=== PATIENT | male | born 1980 | race Caucasian/White ===

== ENCOUNTER 2018-03-13 13:15 | Emergency (ER) | payer OTHER ==
[~2018-03-13] VITALS: Ht 180.3 cm; Wt 79.8 kg
[~2018-03-13 13:15] MED LIST: CYCLOBENZAPRINE5 M2 PO; IBUPROFEN800 M1 PO
[2018-03-13 14:05] LABS: ABSOLUTE BASOPHIL COUNT 0 /CUMM (0.0-0.2); ABSOLUTE EOSINOPHIL COUNT 0.1 /CUMM (0.0-0.7); ABSOLUTE GRANULOCYTE CT 2.8 /CUMM (1.4-6.5); ABSOLUTE LYMPH COUNT 1.6 /CUMM (1.2-3.4); ABSOLUTE MONOCYTE COUNT 0.2 /CUMM (0.10-0.60); BASOPHIL % 0.8 % (0.0-2.0); EOSINOPHIL % 2.3 % (0-5); GRANULOCYTE % 58.2 % (42.2-75.2); HEMATOCRIT 41.1 % (42-52); MEAN CORPUSCULAR HGB 32.4 PG (27.0-31.0); MEAN CORPUSCULAR HGB CONC 35.2 G/DL (33.0-37.0); MEAN CORPUSCULAR VOLUME 92.1 FL (80.0-94.0); MEAN PLATELET VOLUME 8.9 FL (7.4-10.4); PLATELET COUNT 233 /CUMM (130-400); RBC DISTRIBUTION WIDTH 13.6 % (11.5-14.5); RED BLOOD CELL CT 4.46 /CUMM (4.70-6.10); WHITE BLOOD CELL COUNT 4.8 /CUMM (4.8-10.8)
--- NOTE | 2018-03-13 14:32 | ED GENERAL ADULT ---
History of Present Illness General Chief Complaint: General Adult Stated Complaint: ? DEHYDRATIO Source: patient Exam Limitations: no limitations Vital Signs & Intake/Output Vital Signs & Intake/Output Vital Signs Date Time Temp Pulse Resp B/P B/P Pulse O2 O2 Flow FiO2 Mean Ox Delivery Rate 03/13 1530 97.9 76 18 124/74 98 Room Air Room Air 03/13 1321 97.6 83 18 131/67 97 Room Air 03/13 1320 97 Room Air Room Air ED Intake and Output 03/14 0000 03/13 1200 Intake Total 1000 Output Total Balance 1000 Intake, IV 1000 Patient 176 lb Weight Weight Reported by Patient Measurement Method Allergies Coded Allergies: acetaminophen (From TYLENOL COLD HEAD CONGESTION) ([facility] 02/16/16) dextromethorphan (From TYLENOL COLD HEAD CONGESTION) ([facility] 02/16/16) guaifenesin (From TYLENOL COLD HEAD CONGESTION) ([facility] 02/16/16) ibuprofen (From ADVIL COLD AND SINUS) ([facility] 02/16/16) phenylephrine (From TYLENOL COLD HEAD CONGESTION) ([facility] 02/16/16) pseudoephedrine (From ADVIL COLD AND SINUS) ([facility] 02/16/16) Reconcile Medications No Known Home Medications Triage Note: BIBA PER EMS PT PULLED OVER, FOR C/O LEG CRAMPING AND DEHYDRATION, ONLY HAD COFFEE AND A ENERGY BAR THIS MORNING, PER PT DID NOT EAT SUPPER LAST NIGHT AND HAD "SOME ALCOHOL LAST NIGHT". Triage Nurses Notes Reviewed? yes Onset: Abrupt Duration: day(s): (1), better, continues in ED Timing: single episode today Injury Environment: home Severity: mild, moderate No Modifying Factors: none HPI: 37-year-old male history of cold dependence brought in by ambulance for evaluation of dehydration. Patient reports last night he had been drinking not eating very much. He states daily had some coffee. 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 Patient denies any dizziness lightheadedness chest pain abdominal pain nausea vomiting or diarrhea. No changes in vision no slurred speech. He does not want alcohol detox. Denies any drug use orhomicidalideation. Patient is reluctant to answer questions. He reports he does HAVE a lot of stress in his life that he thinks may have contributed to this. Past History Travel History Traveled to [place] past 21 day No Medical History Any Pertinent Medical History? 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 No Review of Systems Review of Systems Constitutional: Reports: no symptoms. EENTM: Reports: no symptoms. Respiratory: Reports: no symptoms. Cardiovascular: Reports: no symptoms. GI: Reports: no symptoms. Genitourinary: Reports: no symptoms. Musculoskeletal: Reports: see HPI, back pain, muscle pain, muscle stiffness. Skin: Reports: no symptoms. Neurological/Psychological: Reports: no symptoms. Hematologic/Endocrine: Reports: no symptoms. Immunologic/Allergic: Reports: no symptoms. All Other Systems: Reviewed and Negative Physical Exam Physical Exam General Appearance: well developed/nourished, no apparent distress, alert, awake Head: atraumatic, normal appearance Eyes: Bilateral: normal appearance, PERRL, EOMI. Ears, Nose, Throat: normal pharynx, normal ENT inspection, hearing grossly normal Neck: normal inspection, supple, full range of motion Respiratory: normal breath sounds, chest non-tender, no respiratory distress, lungs clear Cardiovascular: regular rate/rhythm, normal peripheral pulses Peripheral Pulses: 2+ radial (R), 2+ radial (L) Gastrointestinal: soft, non-tender Back: normal inspection, normal range of motion Extremities: normal inspection, normal range of motion, no edema Neurologic/Psych: no motor/sensory deficits, awake, alert, oriented x 3, normal gait, normal mood/affect Skin: intact, normal color, warm/dry Lymphatic: no anterior cervical duane Core Measures ACS in differential dx? No CVA/TIA Diagnosis: No Sepsis Present: No Sepsis Focused Exam Completed? No Progress Differential Diagnoses I considered the following diagnoses in my evaluation of the patient: [ Dehydration, electrolyte abnormality, drug intoxication, drug withdrawal] Plan of Care: Orders Procedure Date/time Status Add-on Test (ER Only) 03/13 1436 Active ETHANOL 03/13 1325 Complete TROPONIN LEVEL 09/11 1320 Complete COMPREHENSIVE METABOLIC PANEL 03/13 1320 Complete CBC WITHOUT DIFFERENTIAL 03/13 1320 Complete Laboratory Tests 03/13/18 1325: Anion Gap 11, Estimated GFR > 60, BUN/Creatinine Ratio 17.0, Glucose 100 H, Calcium 9.7, Total Bilirubin 0.6, AST 28, ALT 39, Alkaline Phosphatase 55, Troponin I < 0.01, Total Protein 7.3, Albumin 4.7, Globulin 2.6, Albumin/ Globulin Ratio 1.8, CBC w Diff NO MAN DIFF REQ, RBC 4.46 L, MCV 92.1, MCH 32.4 H, MCHC 35.2, RDW 13.6, MPV 8.9, Gran % 58.2, Lymphocytes % 33.7, Monocytes % 5.0, Eosinophils % 2.3, Basophils % 0.8, Absolute Granulocytes 2.8, Absolute Lymphocytes 1.6, Absolute Monocytes 0.2, Absolute Eosinophils 0.1, Absolute Basophils 0, Serum Alcohol < 10.0 03/13/18 132: Urine Color Cancelled, Urine Clarity Cancelled, Urine pH Cancelled, Ur Specific [place] Cancelled, Urine Protein Cancelled, Urine Ketones Cancelled, Urine Nitrite Cancelled, Urine Bilirubin Cancelled, Urine Urobilinogen Cancelled, Ur Leukocyte Esterase Cancelled, Ur Microscopic Cancelled, Urine Hemoglobin Cancelled, Urine Glucose Cancelled Patient is here feeling dehydrated. He is requesting IV fluids. Patient is reluctant to answer questions causing history to be limited. His vital signs are stable physical exam is unremarkable. Labs were ordered patient was given a liter of normal saline. After fluids patient reports he is feeling much better and would like to leave. He declines wanting alcohol detox orhomicidalideation. Patientappears Sober and has a steady gait. He was instructed to continue drinking plenty of fluids and avoid alcohol follow-up with the primary care doctor discussed return precautions patient agrees Initial ED EKG: none Departure Departure Disposition: HOME OR SELF CARE Condition: Stable Clinical Impression Primary Impression: Dehydration Referrals: Patient Has No Primary Care Dr (PCP/Family) Additional Instructions: Continue to drink plenty of fluids espicially water. Avoid caffeine.follow-up with a primary care doctor monitor your symptoms return with any concerns. Departure Forms: Customer Survey General Discharge Information Prescriptions: Current Visit Scripts No Known Home Medications Critical Care Note Critical Care Note Critical Care Time: non-applicable
[2018-03-13 15:30] VITALS: BP 124/74
== END 2018-03-13 15:35 ==
LOC: ERH 13:15
PROVIDERS: Physician Assistant Medical
DX: E86.0 Dehydration (principal); F10.20 Alcohol dependence, uncomplicated; D64.9 Anemia, unspecified; F10.10 Alcohol abuse, uncomplicated
CPT/HCPCS: 96360; G0480